=== PATIENT | female | born 1985 | race Caucasian/White ===

== ENCOUNTER 2018-05-20 12:37 | Emergency (ER) | payer MEDICAID, OTHER ==
[~2018-05-20] VITALS: Ht 175.3 cm; Wt 132.0 kg
[~2018-05-20 12:37] MED LIST: BAC10T PO; CYCL-1 PO; HYDR-4383 PO; IBUP-1051 PO; IBUP-1984 PO; LORA10TA61 PO; NAP220T PO; ONDA4TAB12 PO; TRAM50TA2 PO
[2018-05-20 13:18] LABS: URINE HCG POSITIVE (NEG)
[2018-05-20 13:19] LABS: CLARITY,URINE CLEAR (Clear); COLOR,URINE YELLOW (Yellow); GLUCOSE, URINE NEGATIVE (Neg); KETONES,URINE NEGATIVE (Neg); LEUKOCYTE ESTERASE ,URINE TRACE (Neg); NITRITES, URINE NEGATIVE (Neg); OCCULT BLOOD,URINE NEGATIVE (Neg); PROTEIN,URINE NEGATIVE (Neg); UROBILINOGEN,URINE 0.2 E.U/dL (0.2-1.0)
[2018-05-20 13:26] LABS: UA COLLECTION TYPE CLN CATCH MIDSTREAM
[2018-05-20 13:32] LABS: BASOPHILS % (AUTO) 0.5 % (0-1); EOSINOPHILS # (AUTO) 0.1 X10'3 (0-0.9); EOSINOPHILS % (AUTO) 0.7 % (0-6); HEMATOCRIT 39.4 % (35.0-45.0); HEMOGLOBIN 13.9 g/dl (12.0-16.0); LYMPHOCYTES # (AUTO) 2.2 X10'3 (1.1-4.8); LYMPHOCYTES % (AUTO) 23.3 % (21-51); MEAN CORPUSCULAR HEMOGLOBIN 29.3 PG (27.0-31.0); MEAN CORPUSCULAR HGB CONC 35.2 g/dL (33.0-36.5); MEAN CORPUSCULAR VOLUME 83.4 FL (78-98); MEAN PLATELET VOLUME 6.3 FL (7.4-10.4); MONOCYTES # (AUTO) 0.7 X10'3 (0-0.9); MONOCYTES % (AUTO) 7.9 % (2-12); NEUTROPHILS # (AUTO) 6.3 X10'3 (1.8-7.7); NEUTROPHILS % (AUTO) 67.6 % (42-75); PLATELET COUNT 354 X10'3 (140-440); RED BLOOD COUNT 4.72 X10'6 (4.20-5.60); RED CELL DISTRIBUTION WIDTH 13.7 % (11.5-14.5); WHITE BLOOD COUNT 9.3 X10'3 (4.5-11.0)
[2018-05-20 13:43] LABS: ALANINE AMINOTRANSFERASE 30 U/L (12-78); ALBUMIN 3.2 G/DL (3.4-5.0); ALBUMIN/GLOBULIN RATIO 0.8 (1.1-1.5); ALKALINE PHOSPHATASE 65 IU/L (46-116); ANION GAP 6 (8-16); ASPARTATE AMINO TRANSFERASE 12 U/L (10-37); BILIRUBIN,TOTAL 0.2 MG/DL (0.1-1.0); BLOOD UREA NITROGEN 9 MG/DL (7-18); BUN/CREATININE RATIO 12.7 (6.6-38.0); CALCIUM 9.2 MG/DL (8.5-10.1); CHLORIDE 103 MMOL/L (99-107); CREATININE 0.71 MG/DL (0.40-0.90); GLUCOSE 76 MG/DL (70-104); POTASSIUM 3.7 MMOL/L (3.5-5.1); SODIUM 136 MMOL/L (135-145); TOTAL CARBON DIOXIDE 26.6 MMOL/L (24-32); TOTAL PROTEIN 7.2 G/DL (6.4-8.2); eGFR > 90 ML/MIN
[2018-05-20 13:43] LABS: BACTERIA,URINE 1+ /HPF (Neg); MUCUS STRANDS MODERATE /LPF (Neg); RBC,URINE 0-2 /HPF (0-2); SQUAMOUS EPITHELIAL CELL,UR MODERATE /LPF (FEW)
[2018-05-20 15:14] LABS: BETA HCG,QUANTITATIVE 92850 mIU/ml
[2018-05-20 17:18] VITALS: BP 114/83
== END 2018-05-20 17:21 | disposition home or self-care (01) ==
LOC: ER 12:38
DX: O26.891 Other specified pregnancy related conditions, first trimester (principal); R10.2 Pelvic and perineal pain; G89.29 Other chronic pain; Z3A.08 8 weeks gestation of pregnancy; Z79.899 Other long term (current) drug therapy; Z88.1 Allergy status to other antibiotic agents
CPT/HCPCS: 36415; 76801; 76802; 80053; 81001; 81025; 84702; 85025; 87088; 99284

== ENCOUNTER 2019-08-18 09:26 | Emergency (ER) | payer MEDICAID ==
[~2019-08-18] VITALS: Ht 175.3 cm; Wt 150.0 kg
[2019-08-18 09:35] VITALS: BP 149/93
[2019-08-18] MEDS ORDERED: oxyCODONE IR 5mg (immed. release) tablet PO ONE (10:05)
[2019-08-18] MEDS ORDERED: LEVO500T89 PO (10:50)
== END 2019-08-18 11:11 | disposition home or self-care (01) ==
LOC: ER 09:27
DX: S91.332A Puncture wound without foreign body, left foot, initial encounter (principal); S90.32XA Contusion of left foot, initial encounter; G89.29 Other chronic pain; Z72.89 Other problems related to lifestyle; Z88.8 Allergy status to other drugs, medicaments and biological substances; Z79.899 Other long term (current) drug therapy; W45.0XXA Nail entering through skin, initial encounter; Y93.89 Activity, other specified; Y92.89 Other specified places as the place of occurrence of the external cause; Y99.8 Other external cause status
CPT/HCPCS: 73630; 99283

== ENCOUNTER 2023-10-07 18:07 | Emergency (ER) | payer MEDICAID ==
[~2023-10-07] VITALS: Ht 175.3 cm; Wt 127.3 kg
[~2023-10-07 18:07] MED LIST changes: +ONDA-243 PO; -ONDA4TAB12 PO
[2023-10-07 18:18] VITALS: BP 152/80; PULSE 106; RESP 18; O2SAT 96
[2023-10-07] MEDS ORDERED: AMOX500C2 PO (19:22)
[2023-10-07] MEDS: amoxicillin 250mg capsule PO ONE (19:30)
[2023-10-07 20:07] VITALS: TEMP 101
== END 2023-10-07 20:09 | disposition home or self-care (01) ==
LOC: ER 18:07
DX: J02.0 Streptococcal pharyngitis (principal); G89.29 Other chronic pain; M54.9 Dorsalgia, unspecified; Z88.8 Allergy status to other drugs, medicaments and biological substances; Z79.2 Long term (current) use of antibiotics; Z79.1 Long term (current) use of non-steroidal anti-inflammatories (NSAID); Z79.899 Other long term (current) drug therapy; Z72.89 Other problems related to lifestyle
CPT/HCPCS: 99283

== ENCOUNTER 2024-07-05 17:09 | Emergency (ER) | payer MEDICAID ==
[~2024-07-05] VITALS: Ht 175.3 cm; Wt 114.9 kg
[2024-07-05] MEDS ORDERED: PRED20TA PO (18:27)
[2024-07-05] MEDS: dexamethasone sod phosphate 10mg/ml inj IM STA (18:34)
[2024-07-05] MEDS: ketorolac trometh 30MG/ML vial 30 MG/ML VIAL IM ONE (18:34)
[2024-07-05 18:43] VITALS: BP 128/74; PULSE 89; RESP 18; TEMP 98.6; O2SAT 99
== END 2024-07-05 18:44 | disposition home or self-care (01) ==
LOC: ER 17:09
DX: M43.6 Torticollis (principal)
CPT/HCPCS: 96372; 99284; J1100; J1885

== ENCOUNTER 2024-10-20 19:34 | Emergency (ER) | payer MEDICAID ==
[~2024-10-20] VITALS: Ht 175.3 cm; Wt 111.1 kg
[2024-10-20 19:58] VITALS: TEMP 98.6
--- NOTE | 2024-10-20 21:53 | Physician Documentation ---
History of Present Illness ~ Chief Complaint: Rash Stated Complaint: POSSIBLE SHINGLES Time Seen by MD: 20:13 Primary Medical Doctor: none at this time HPI Patient is seen today with complaints of rash of her right lower abdomen size of a dinner plate in the shape of the dinner plate that occurred just earlier today. Patient states that earlier today was much more erythematous and it has resolved significantly and improved significantly. Patient states she did find out she was just a few days ago. She states he has been very nauseous and vomiting frequently and even daily for the last three weeks. Patient is not sure of her last menstrual period. Patient denies any chest pain or shortness of breath or abdominal pain or diarrhea. Patient denies any fevers or chills. She has no other concern or complaint at this time. Medication Reconciliation Allergies: Coded Allergies: lansoprazole (Verified Allergy, Unknown, 10/20/24) omeprazole (Verified Allergy, Unknown, 10/20/24) omeprazole magnesium (Verified Allergy, Unknown, 10/20/24) Scheduled Hydrocodone/Acetaminophen (Hominy 5-325 Tablet), 1 TABLET PO TID Ibuprofen* (Motrin*), 800 MG PO TID Loratadine (Claritin), 1 TAB PO DAILY Scheduled PRN Baclofen* (Lioresal*), 10 MG PO TID PRN, (Reported) Cyclobenzaprine* (Cyclobenzaprine*), 1 TABLET PO QHS PRN for muscle spasms Ibuprofen* (Motrin*), MG PO Q6H PRN, (Reported) Naproxen Sodium* (Aleve*), 220 MG PO BID PRN, (Reported) ONDANSETRON ODT 4mg tablet (Ondansetron Odt), 1 TABLET PO Q6H PRN for nausea/vomiting Tramadol HCl (Tramadol HCl), 100 MG PO Q8H PRN, (Reported) Past Medical History Past Medical History: Chronic Back Pain Past Surgical History: no surgical history Smoking Status: Never smoker Alcohol Use: Occasionally Drug Use: none Lives with: Family Lives In: Home Occupation: employed Review of Systems Constitutional: Denies: chills, fever, weakness Eyes: Denies: pain, blurred vision ENT: Denies: ear pain, nose pain, throat pain, mouth pain Respiratory: Denies: cough, shortness of breath Cardiovascular: Denies: chest pain, palpitations Gastrointestinal: Denies: abdominal pain, nausea, vomiting Genitourinary: Denies: burning, dysuria Female Genitalia: Denies: vaginal discharge, pelvic pain Neurological: Denies: headache, dizziness Musculoskeletal: Denies: pain, swelling Integumentary: Denies: rash, lesions Allergic/Immunologic: Denies: hives, itching Hematologic/Lymphatic: Denies: no symptoms reported Psychiatric: Denies: depression, anxiety Physical Exam Vital Signs: Temperature: 98.6, Source: Oral, Heart Rate: 82, Respiratory Rate: 17, BP: 146/93, Pulse Oximetry: 97, Weight: 111.090 Oxygen Flow Rate: 0 Physical Exam General: Awake and Alert, no acute distress. HEENT: Conjunctiva pink, Sclera clear, Mucus Membranes moist. Neck: Supple without masses and tenderness. Resp: Unlabored. Lungs clear to auscultation bilaterally. Heart: Regular Rate and rhythm, normal S1 and S2 without murmur, rub or gallop. Abdomen: Soft and non tender no organomegaly Extremities: No cyanosis,clubbing or edema. Skin: Patient on exam does have a what appears to be resolving erythema in his circular pattern about the size of a small dinner plate of her right abdomen. I do not appreciate any vesicle formation and the rash does not approach the mi dline your either dorsally or ventrally. The rash is not significantly tender to palpation. Progress Results/Orders Results/Orders Orders - ELMO HERNÁNDEZ PAC Hcg, Ur Ql (10/20/24 21:19) Vital Signs 10/20/24 19:58 Temp 98.6 Pulse 82 Resp 17 B/P (MAP) 146/93 Pulse Ox 97 O2 Flow Rate 0 Laboratory Tests Test 10/20/24 21:32 Medical Decision Making Findings Patient is seen today with complaints of rash of her right lower abdomen size of a dinner plate in the shape of the dinner plate that occurred just earlier today. Patient states that earlier today was much more erythematous and it has resolved significantly and improved significantly. Patient states she did find out she was just a few days ago. She states he has been very nauseous and vomiting frequently and even daily for the last three weeks. Patient is not sure of her last menstrual period. Patient denies any chest pain or shortness of breath or abdominal pain or diarrhea. Patient denies any fevers or chills. She has no other concern or complaint at this time. Patient did have positive urine test today. Patient will follow up with [facility] for further eval and treatment. Patient was given prescription of vitamin B6 and doxylamine for nausea/morning sickness as well as prescription of triamcinolone 0.5% topical cream to be applied to the affected area of the skin of the abdomen as needed. Patient will return to ED with any worsening, concerning or changing symptoms. Departure Disposition: HOME / SELF CARE / HOMELESS Impression: Primary Impression: Urticaria Condition: Improved Discharge Instructions: Morning Sickness, [id number] Additional Instructions: Patient did have positive urine test today. Patient will follow up with [facility] for further eval and treatment. Patient was given prescription of vitamin B6 and doxylamine for nausea/morning sickness as well as prescription of triamcinolone 0.5% topical cream to be applied to the affected area of the skin of the abdomen as needed. Patient will return to ED with any worsening, concerning or changing symptoms. Referrals: NO PRIMARY CARE PROVIDER (PCP) Prescriptions Triamcinolone Acetonide 0.5% Crm* (Kenalog 0.5% Crm*) 15 Gm Tube 1 APPLIC TOP Q12H for 10 Days, #30 GM apply to affected area(s) Prov: ELMO HERNÁNDEZ 10/20/24 Doxylamine Succinate (Unisom) 25 Mg Tablet 0.5 TAB PO TID for 10 Days, #30 TAB 0 Refills Prov: ELMO HERNÁNDEZ 10/20/24 Pyridoxine HCl (Vitamin B-6) 25 Mg Tablet 1 TAB PO Q8H for 10 Days, #30 TAB 0 Refills Prov: ELMO HERNÁNDEZ 10/20/24 Signature Scribe Signature: No scribe Attestation: No scribe ELMO HERNÁNDEZ Oct 20, 2024 21:53
[2024-10-20 21:55] LABS: URINE HCG POSITIVE (NEG)
[2024-10-20] MEDS ORDERED: DOXY25TA58 PO (22:08)
[2024-10-20] MEDS ORDERED: PYRI25TA3 PO (22:08)
[2024-10-20] MEDS ORDERED: TRIA15CR61 TOP (22:08)
[2024-10-20 22:22] VITALS: BP 140/90; PULSE 80; RESP 18; O2SAT 99
== END 2024-10-20 22:23 | disposition home or self-care (01) ==
LOC: ER 19:35
DX: L50.9 Urticaria, unspecified (principal); Z79.899 Other long term (current) drug therapy; Z88.8 Allergy status to other drugs, medicaments and biological substances; Z72.89 Other problems related to lifestyle
CPT/HCPCS: 81025; 99283